=== PATIENT | male | born 1950 | race Caucasian/White ===

== ENCOUNTER → 2016-09-19 | Outpatient (CLI) | payer MEDICARE, OTHER | LOC: LAB 08:18 | DX: N40.0 Benign prostatic hyperplasia without lower urinary tract symptoms (principal); I10 Essential (primary) hypertension; E78.2 Mixed hyperlipidemia ==

== ENCOUNTER → 2017-01-31 | Outpatient (CLI) | payer MEDICARE, OTHER | LOC: LAB 08:29 | DX: I10 Essential (primary) hypertension (principal); N30.00 Acute cystitis without hematuria; B96.20 Unspecified Escherichia coli [E. coli] as the cause of diseases classified elsewhere ==

== ENCOUNTER → 2017-02-01 | Outpatient (CLI) | payer MEDICARE, OTHER | LOC: RAD 07:46 | DX: R74.8 Abnormal levels of other serum enzymes (principal); R79.89 Other specified abnormal findings of blood chemistry; K76.89 Other specified diseases of liver; N28.1 Cyst of kidney, acquired ==

== ENCOUNTER → 2017-02-11 | Outpatient (CLI) | payer MEDICARE, OTHER | LOC: LAB 10:25 | DX: Z91.09 Other allergy status, other than to drugs and biological substances (principal); N39.0 Urinary tract infection, site not specified ==

== ENCOUNTER 2017-04-27 18:24 | Emergency (ER) | payer MEDICARE, OTHER ==
[~2017-04-27] VITALS: Ht 180.3 cm; Wt 97.7 kg
[2017-04-27] MEDS ORDERED: HYDROCHLOROTHIA1 T14 PO (18:50)
[2017-04-27] MEDS ORDERED: ATORVASTATIN CA20 MG PO (18:50)
[2017-04-27] MEDS ORDERED: ASPIRIN ADULT L81 M3 PO (18:51)
[2017-04-27] MEDS ORDERED: AMOXICILLIN AND1 TA2 PO (18:52)
[2017-04-27 20:00] VITALS: BP 141/86
== END 2017-04-27 20:08 | disposition home or self-care (01) ==
LOC: ED 18:24
DX: S61.051D Open bite of right thumb without damage to nail, subsequent encounter (principal); S61.451D Open bite of right hand, subsequent encounter; W54.0XXD Bitten by dog, subsequent encounter

== ENCOUNTER 2017-04-29 13:15 | Outpatient (RCR) | payer MEDICARE, OTHER ==
[~2017-04-29] VITALS: Ht 180.3 cm; Wt 97.7 kg
[~2017-04-29 13:15] MED LIST: AMOXICILLIN AND1 TA2 PO; ASPIRIN ADULT L81 M3 PO; ATORVASTATIN CA20 MG PO; HYDROCHLOROTHIA1 T14 PO
[2017-04-29 13:27] VITALS: BP 127/58
--- NOTE | 2017-05-02 10:17 | NUR ---
Pt arrives ambulatory. Old dressing removed. No drainage noted. Dried blood and glue noted to finger around nailbed. Punctue wound to pad side of thumb. Area cleansed with hibiclens and redressed with telfa and tube gauze. Pt tolerates well. Denies any pain and ROM remains WNL
== END 2017-05-03 14:00 | disposition home or self-care (01) ==
LOC: AMSURD 13:15 → EDSTATUS 13:33 → AMSURD 05-03 14:00
DX: Z48.00 Encounter for change or removal of nonsurgical wound dressing (principal); W54.0XXD Bitten by dog, subsequent encounter

== ENCOUNTER → 2019-02-09 | Outpatient (CLI) | payer MEDICARE, OTHER ==
[2019-02-09 07:54] LABS: ALBUMIN 3.9 g/dL (3.4-4.8)
[2019-02-09 07:57] LABS: TOTAL PROTEIN 6.3 g/dL (6.2-8.1)
[2019-02-09 07:59] LABS: TOTAL BILIRUBIN 0.7 mg/dL (0.2-1.2)
[2019-02-09 08:02] LABS: DIRECT BILIRUBIN 0.3 mg/dL (0.0-0.5)
== END ==
LOC: LAB 07:24
PROVIDERS: Physician Assistant
DX: Z51.81 Encounter for therapeutic drug level monitoring (principal); Z79.899 Other long term (current) drug therapy

== ENCOUNTER → 2019-04-14 | Outpatient (CLI) | payer MEDICARE, OTHER ==
[2019-04-14 11:54] LABS: EOS % 0.3 % (0.0-4.0); HEMATOCRIT 45.1 % (42.0-52.0); HEMOGLOBIN 15.4 g/dL (13.5-18.0); LYMPH# 1.5 (1.50-4.00); MEAN CELL VOLUME 91 fl (78-100); MEAN CORPUSCULAR HEMOGLOBIN 31 pg (27-31); MEAN CORPUSCULAR HGB CONC 34 g/dL (33-37); MEAN PLATELET VOLUME 9.4 fl (7.4-10.4); MONO # 0.7 (0.20-0.80); NEU # 8.8 (1.40-6.50); PLATELET COUNT 243 K/mm3 (130-400); RED BLOOD COUNT 4.97 M/mm3 (4.20-5.60); RED CELL DISTRIBUTION WIDTH 12.8 % (11.5-14.5)
[2019-04-14 11:58] LABS: ALBUMIN 4.5 g/dL (3.4-4.8)
[2019-04-14 11:59] LABS: POTASSIUM 3.9 mmol/L (3.5-5.1)
[2019-04-14 12:00] LABS: CALCIUM 9.9 mg/dL (8.3-10.5)
[2019-04-14 12:01] LABS: TOTAL PROTEIN 7.2 g/dL (6.2-8.1)
[2019-04-14 12:03] LABS: TOTAL BILIRUBIN 1.9 mg/dL (0.2-1.2)
== END ==
LOC: RAD 11:37
PROVIDERS: Physician Assistant
DX: M41.85 Other forms of scoliosis, thoracolumbar region (principal); M47.815 Spondylosis without myelopathy or radiculopathy, thoracolumbar region; J30.89 Other allergic rhinitis; J01.90 Acute sinusitis, unspecified; G25.81 Restless legs syndrome

== ENCOUNTER → 2019-04-28 | Outpatient (CLI) | payer MEDICARE, OTHER | LOC: RAD 08:33 | DX: K45.8 Other specified abdominal hernia without obstruction or gangrene (principal); K57.30 Diverticulosis of large intestine without perforation or abscess without bleeding; R07.81 Pleurodynia | CPT/HCPCS: Q9967 ==

== ENCOUNTER 2019-06-03 02:28 | Emergency (ER) | payer MEDICARE, OTHER ==
[2019-06-03] MEDS ORDERED: ROPINIROLE HYD0.5 MG PO (02:41)
[2019-06-03] MEDS ORDERED: MELATONIN10 M2 PO (02:41)
[2019-06-03] MEDS ORDERED: ZYRTEC ALLERGY10 MG PO (02:41)
[2019-06-03] MEDS ORDERED: VALACYCLOVIR1 GM PO (03:24)
[2019-06-03] MEDS ORDERED: ONDANSETRON ODT8 MG PO (03:50)
[2019-06-03 04:12] VITALS: BP 147/87
== END 2019-06-03 04:10 | disposition home or self-care (01) ==
LOC: ED 02:28
DX: G25.81 Restless legs syndrome (principal); R11.0 Nausea; R51 Headache; T50.995A Adverse effect of other drugs, medicaments and biological substances, initial encounter; I10 Essential (primary) hypertension; I25.10 Atherosclerotic heart disease of native coronary artery without angina pectoris; F41.9 Anxiety disorder, unspecified; Z79.82 Long term (current) use of aspirin; Z87.891 Personal history of nicotine dependence; Z95.5 Presence of coronary angioplasty implant and graft; Z98.890 Other specified postprocedural states
CPT/HCPCS: J1885

== ENCOUNTER 2019-08-11 13:41 | Outpatient (RCR) | payer MEDICARE, OTHER ==
[~2019-08-11 13:41] MED LIST changes: +MELATONIN10 M2 PO; +ONDANSETRON ODT8 MG PO; +ROPINIROLE HYD0.5 MG PO; +VALACYCLOVIR1 GM PO; +ZYRTEC ALLERGY10 MG PO
== END 2019-08-11 14:00 | disposition still patient (30) ==
LOC: SPEECH 13:41
DX: R41.3 Other amnesia (principal)

== ENCOUNTER → 2020-03-30 | Outpatient (CLI) | payer MEDICARE, OTHER ==
[2020-03-30 15:47] LABS: ALBUMIN 4.4 g/dL (3.4-4.8)
[2020-03-30 15:52] LABS: TOTAL BILIRUBIN 1.5 mg/dL (0.2-1.2)
[2020-03-30 15:56] LABS: DIRECT BILIRUBIN 0.6 mg/dL (0.0-0.5)
== END ==
LOC: RAD 15:24 → LAB 15:24
PROVIDERS: Physician Assistant
DX: G31.9 Degenerative disease of nervous system, unspecified (principal)

== ENCOUNTER → 2020-07-05 | Outpatient (CLI) | payer MEDICARE, OTHER ==
[2020-07-05 09:55] LABS: ALBUMIN 4.3 g/dL (3.4-4.8)
[2020-07-05 09:56] LABS: POTASSIUM 4.1 mmol/L (3.5-5.1)
[2020-07-05 09:57] LABS: CALCIUM 9.5 mg/dL (8.3-10.5)
[2020-07-05 09:58] LABS: TOTAL PROTEIN 7.1 g/dL (6.2-8.1)
[2020-07-05 10:06] LABS: EOS # 0.1 (0.04-0.40); EOS % 1.5 % (0.0-4.0); HEMATOCRIT 42.9 % (42.0-52.0); HEMOGLOBIN 14.7 g/dL (13.5-18.0); LYMPH# 1.4 (1.50-4.00); MEAN CELL VOLUME 89 fl (78-100); MEAN CORPUSCULAR HEMOGLOBIN 31 pg (27-31); MEAN CORPUSCULAR HGB CONC 34 g/dL (33-37); MEAN PLATELET VOLUME 9.7 fl (7.4-10.4); MONO # 0.5 (0.20-0.80); NEU # 4.5 (1.40-6.50); PLATELET COUNT 227 K/mm3 (130-400); RED CELL DISTRIBUTION WIDTH 13.8 % (11.5-14.5); WHITE BLOOD COUNT 6.5 K/mm3 (4.8-10.8)
[2020-07-05 11:08] LABS: ERYTHROCYTE SEDIMENTATION RATE 7 mm/hr (0-20)
[2020-07-05 21:34] LABS: FOLATE (FOLIC ACID) 10.8 ng/mL (7.0-31.4)
[2020-07-05 22:18] LABS: SYPHILIS AB SCREEN w REFLEX Negative (Negative)
[2020-07-07 17:18] LABS: A/G RATIO (PEP) 1.22 (()); BETA GLOBULINS (PEP) 0.9 g/dL (0.7-1.2)
[2020-07-08 09:06] LABS: .COPPER,S 0.94 mcg/mL (())
[2020-07-09 13:04] LABS: VITAMIN B1 145 nmol/L (70-180)
[2020-07-11 15:07] LABS: VITAMIN E 10.3 mg/L (())
== END ==
LOC: LAB 08:23
PROVIDERS: Psychiatry & Neurology Neurology
DX: R41.89 Other symptoms and signs involving cognitive functions and awareness (principal); R25.1 Tremor, unspecified; R56.9 Unspecified convulsions

== ENCOUNTER → 2020-09-30 | Outpatient (CLI) | payer MEDICARE, OTHER ==
[2020-10-06 10:37] LABS: METHYLMALONIC ACID, SERUM 0.14 nmol/mL (<=0.40)
== END ==
LOC: LAB 08:26
PROVIDERS: Psychiatry & Neurology Neurology
DX: G25.0 Essential tremor (principal)

== ENCOUNTER → 2020-12-23 | Outpatient (CLI) | payer MEDICARE, OTHER ==
[2020-12-24 02:59] LABS: FOLATE (FOLIC ACID) 5.4 ng/mL (2.0-20.0)
[2020-12-29 11:46] LABS: VITAMIN E 9.7 mg/L (())
== END ==
LOC: LAB 14:09
PROVIDERS: Psychiatry & Neurology Neurology
DX: Z12.5 Encounter for screening for malignant neoplasm of prostate (principal); E78.2 Mixed hyperlipidemia; R20.2 Paresthesia of skin; E53.8 Deficiency of other specified B group vitamins

== ENCOUNTER → 2021-11-13 | Outpatient (CLI) | payer MEDICARE, OTHER ==
[2021-11-13 07:49] LABS: BASO # 0.04 K/mm3 (0.02-0.10); EOS # 0.09 K/mm3 (0.04-0.40); EOS % 1.5 % (0.0-4.0); HEMATOCRIT 41.3 % (42.0-52.0); HEMOGLOBIN 13.9 g/dL (13.5-18.0); LYMPH# 1.36 K/mm3 (1.50-4.00); MEAN CELL VOLUME 96 fl (78-100); MEAN CORPUSCULAR HEMOGLOBIN 32 pg (27-31); MEAN CORPUSCULAR HGB CONC 34 g/dL (33-37); MEAN PLATELET VOLUME 9.4 fl (7.4-10.4); NEU # 3.94 K/mm3 (1.40-6.50); PLATELET COUNT 202 K/mm3 (130-400); RED BLOOD COUNT 4.31 M/mm3 (4.20-5.60); RED CELL DISTRIBUTION WIDTH 12.6 % (11.5-14.5); WHITE BLOOD COUNT 5.9 K/mm3 (4.8-10.8)
[2021-11-13 07:55] LABS: POTASSIUM 4.5 mmol/L (3.5-5.1)
[2021-11-13 07:56] LABS: ALBUMIN 4.2 g/dL (3.4-4.8)
[2021-11-13 07:57] LABS: CALCIUM 9.8 mg/dL (8.3-10.5)
[2021-11-13 07:58] LABS: TOTAL PROTEIN 6.7 g/dL (6.2-8.1)
== END ==
LOC: LAB 07:04
PROVIDERS: Physician Assistant
DX: Z00.00 Encounter for general adult medical examination without abnormal findings (principal); Z13.220 Encounter for screening for lipoid disorders; Z13.29 Encounter for screening for other suspected endocrine disorder; G25.0 Essential tremor; I10 Essential (primary) hypertension; G20 Parkinson's disease; G25.81 Restless legs syndrome; G40.909 Epilepsy, unspecified, not intractable, without status epilepticus

== ENCOUNTER → 2022-01-24 | Outpatient (CLI) | payer MEDICARE, OTHER | LOC: LAB 12:23 | DX: Z20.822 Contact with and (suspected) exposure to COVID-19 (principal) ==

== ENCOUNTER → 2024-01-25 | Outpatient (CLI) | payer MEDICARE, OTHER ==
[~2024-01-25] MED LIST changes: +ASPIRIN 32325 MG/TAB PO; +ASPIRIN 81M81 MG/TA2 PO; +ATIVAN0.5 MG PO; +DOCUSATE SODIU1 EACH PO; +DULCOLAX5 M1 PO; +GOOD NEIGHBOR325 MG PO; +LISINOPRIL20 MG PO; +PROPRANOLOL ER80 MG PO; +REMEDY ANTIFUNG85 GM TP; +ROPINIROLE HCL1 MG PO; +ROPINIROLE HYD0.5 MG; +ROXICODONE 55 MG/TAB PO; +TYLENOL EXTRA500 M2 PO; +VITAMIN C500 MG
[2024-01-25 18:35] LABS: URINE APPEARANCE TURBID (CLEAR); URINE BILIRUBIN NEGATIVE (NEGATIVE); URINE GLUCOSE NEGATIVE (NEGATIVE); URINE KETONE NEGATIVE (NEGATIVE); URINE PROTEIN(semi-quant) 3+ (NEGATIVE)
[2024-01-25 18:36] LABS: URINE BLOOD 3+ (NEGATIVE); URINE LEUKOCYTE ESTERASE TRACE (NEGATIVE); URINE NITRATE NEGATIVE (NEGATIVE)
[2024-01-25 18:37] LABS: URINE COLOR BROWN (YELLOW)
== END ==
LOC: LAB 17:50
PROVIDERS: Nurse Practitioner Family
DX: R31.9 Hematuria, unspecified (principal)

== ENCOUNTER → 2024-02-27 | Outpatient (CLI) | payer MEDICARE, OTHER | LOC: RAD 13:41 | DX: M47.816 Spondylosis without myelopathy or radiculopathy, lumbar region (principal); I70.0 Atherosclerosis of aorta; M16.12 Unilateral primary osteoarthritis, left hip; I99.9 Unspecified disorder of circulatory system ==

== ENCOUNTER 2024-03-05 16:11 | Observation (INO) | payer MEDICARE, OTHER ==
[~2024-03-05] VITALS: Ht 170.2 cm; Wt 86.3 kg
[2024-03-05] MEDS ORDERED: CARBIDOPA AND L1 OD1 PO (16:46)
[2024-03-05] MEDS ORDERED: VAZALORE81 MG PO (16:47)
[2024-03-05] MEDS ORDERED: CYCLOBENZ5 MG PO (16:49)
[2024-03-05] MEDS ORDERED: CYANOCOBAL1000 MCG/2 PO (16:51)
[2024-03-05] MEDS ORDERED: DOCUSATE NA250 MG PO (16:52)
[2024-03-05] MEDS ORDERED: NS 1,000 ML IV SCH (17:00)
[2024-03-05 17:05] LABS: BASO # 0.03 K/mm3 (0.02-0.10); EOS % 1.2 % (0.0-4.0); HEMATOCRIT 42.8 % (42.0-52.0); HEMOGLOBIN 14.7 g/dL (13.5-18.0); LYMPH# 1.26 K/mm3 (1.50-4.00); MEAN CELL VOLUME 92 fl (78-100); MEAN CORPUSCULAR HEMOGLOBIN 32 pg (27-31); MEAN CORPUSCULAR HGB CONC 34 g/dL (33-37); MEAN PLATELET VOLUME 9.1 fl (7.4-10.4); MONO # 0.58 K/mm3 (0.20-0.80); NEU # 6.37 K/mm3 (1.40-6.50); PLATELET COUNT 195 K/mm3 (130-400); RED BLOOD COUNT 4.66 M/mm3 (4.20-5.60); RED CELL DISTRIBUTION WIDTH 12.9 % (11.5-14.5); WHITE BLOOD COUNT 8.4 K/mm3 (4.8-10.8)
[2024-03-05 17:23] LABS: ALBUMIN 4.3 g/dL (3.4-4.8); SODIUM 141 mmol/L (136-145)
[2024-03-05 17:24] LABS: CALCIUM 9.9 mg/dL (8.3-10.5)
[2024-03-05 17:25] LABS: GLUCOSE 97 mg/dL (75-110)
[2024-03-05 17:26] LABS: TOTAL PROTEIN 6.7 g/dL (6.2-8.1)
[2024-03-05 17:27] LABS: CARBON DIOXIDE 20 mmol/L (23-31); TOTAL BILIRUBIN 1.7 mg/dL (0.2-1.2)
[2024-03-05 17:31] LABS: AST-SGOT 13 U/L (5-34)
[2024-03-05 17:33] LABS: ALT/SGPT < 6 U/L (0-55)
[2024-03-05 18:10] LABS: URINE APPEARANCE CLOUDY (CLEAR); URINE COLOR PINK (YELLOW)
[2024-03-05 18:12] LABS: URINE BILIRUBIN NEGATIVE (NEGATIVE); URINE BLOOD 3+ (NEGATIVE); URINE GLUCOSE NEGATIVE (NEGATIVE); URINE KETONE NEGATIVE (NEGATIVE); URINE LEUKOCYTE ESTERASE NEGATIVE (NEGATIVE); URINE NITRATE NEGATIVE (NEGATIVE); URINE PROTEIN(semi-quant) 1+ (NEGATIVE); URINE WBC 0-1 /hpf (0-3)
[2024-03-05] MEDS ORDERED: cefTRIAXone 1 G in Water For Injection,Sterile 10 ML IV ONE (18:45)
[2024-03-05 20:46] VITALS: BP 167/91
[2024-03-05] MEDS ORDERED: rOPINIRole 1 MG TABLET PO SCH (21:37)
[2024-03-05] MEDS ORDERED: Acetaminophen 500 MG TAB PO SCH (21:45)
[2024-03-06 05:58] VITALS: BP 182/87
[2024-03-06 07:56] LABS: BASO # 0.03 K/mm3 (0.02-0.10); EOS # 0.08 K/mm3 (0.04-0.40); EOS % 0.9 % (0.0-4.0); HEMATOCRIT 41.7 % (42.0-52.0); HEMOGLOBIN 14.2 g/dL (13.5-18.0); LYMPH# 1.25 K/mm3 (1.50-4.00); MEAN CELL VOLUME 92 fl (78-100); MEAN CORPUSCULAR HEMOGLOBIN 31 pg (27-31); MEAN CORPUSCULAR HGB CONC 34 g/dL (33-37); MEAN PLATELET VOLUME 9.1 fl (7.4-10.4); MONO # 0.59 K/mm3 (0.20-0.80); NEU # 7.28 K/mm3 (1.40-6.50); PLATELET COUNT 187 K/mm3 (130-400); RED BLOOD COUNT 4.54 M/mm3 (4.20-5.60); RED CELL DISTRIBUTION WIDTH 12.7 % (11.5-14.5); WHITE BLOOD COUNT 9.2 K/mm3 (4.8-10.8)
[2024-03-06] MEDS ORDERED: cefTRIAXone 1 G in Water For Injection,Sterile 10 ML IV SCH (08:00)
[2024-03-06 08:03] LABS: CALCIUM 9.6 mg/dL (8.3-10.5)
[2024-03-06 08:04] LABS: TOTAL PROTEIN 6.3 g/dL (6.2-8.1)
[2024-03-06 08:06] LABS: TOTAL BILIRUBIN 1.8 mg/dL (0.2-1.2)
[2024-03-06] MEDS ORDERED: Docusate Sodium 100 MG CAP PO SCH (09:00)
[2024-03-06] MEDS ORDERED: Lisinopril 20 MG TAB PO SCH (09:00)
[2024-03-06] MEDS ORDERED: Iohexol 300 - 100 ML VIAL IV ONE (13:14)
[2024-03-06 17:23] VITALS: BP 147/76
[2024-03-06] MEDS ORDERED: Melatonin 3 MG TAB PO SCH (20:00)
[2024-03-06 22:39] VITALS: BP 127/72
[2024-03-07 02:16] VITALS: BP 172/86
[2024-03-07 05:52] VITALS: BP 150/71
[2024-03-07 06:22] LABS: BASO # 0.03 K/mm3 (0.02-0.10); EOS # 0.08 K/mm3 (0.04-0.40); HEMATOCRIT 41.5 % (42.0-52.0); HEMOGLOBIN 13.8 g/dL (13.5-18.0); LYMPH# 1.54 K/mm3 (1.50-4.00); MEAN CELL VOLUME 94 fl (78-100); MEAN CORPUSCULAR HEMOGLOBIN 31 pg (27-31); MEAN CORPUSCULAR HGB CONC 33 g/dL (33-37); MEAN PLATELET VOLUME 9.2 fl (7.4-10.4); MONO # 0.58 K/mm3 (0.20-0.80); NEU # 6.16 K/mm3 (1.40-6.50); PLATELET COUNT 181 K/mm3 (130-400); RED CELL DISTRIBUTION WIDTH 12.8 % (11.5-14.5); WHITE BLOOD COUNT 8.4 K/mm3 (4.8-10.8)
[2024-03-07 06:25] LABS: ALBUMIN 3.9 g/dL (3.4-4.8); SODIUM 140 mmol/L (136-145)
[2024-03-07 06:26] LABS: CALCIUM 9.6 mg/dL (8.3-10.5)
[2024-03-07 06:27] LABS: GLUCOSE 102 mg/dL (75-110); TOTAL PROTEIN 6.1 g/dL (6.2-8.1)
[2024-03-07 06:29] LABS: CARBON DIOXIDE 20 mmol/L (23-31); TOTAL BILIRUBIN 1.4 mg/dL (0.2-1.2)
[2024-03-07 06:32] LABS: ACETAMINOPHEN < 1 ug/mL; ALCOHOL IN-HOUSE < 10 mg/dL (<10)
[2024-03-07 06:33] LABS: AST-SGOT 18 U/L (5-34)
[2024-03-07 06:38] LABS: ALT/SGPT < 6 U/L (0-55)
[2024-03-07 09:20] VITALS: BP 131/78
[2024-03-07] MEDS ORDERED: CEPHALEXIN500 M1 PO (11:32)
== END 2024-03-07 11:50 | disposition home or self-care (01) ==
LOC: ED 16:11 → MED/SURG 18:55
PROVIDERS: Family Medicine; ADMIT Nurse Practitioner
DX: R41.0 Disorientation, unspecified (principal); T42.8X5A Adverse effect of antiparkinsonism drugs and other central muscle-tone depressants, initial encounter; R44.3 Hallucinations, unspecified; R31.9 Hematuria, unspecified; I12.9 Hypertensive chronic kidney disease with stage 1 through stage 4 chronic kidney disease, or unspecified chronic kidney disease; N18.9 Chronic kidney disease, unspecified; E80.6 Other disorders of bilirubin metabolism; M16.11 Unilateral primary osteoarthritis, right hip; G20.A1 Parkinson's disease without dyskinesia, without mention of fluctuations; M51.36 Other intervertebral disc degeneration, lumbar region; I73.9 Peripheral vascular disease, unspecified; I70.0 Atherosclerosis of aorta; E66.9 Obesity, unspecified; Y92.9 Unspecified place or not applicable
CPT/HCPCS: G0378; J0696; J7030; J7120; Q9967

== ENCOUNTER 2024-03-24 08:30 | Outpatient (RCR) | payer MEDICARE, OTHER ==
[~2024-03-24 08:30] MED LIST changes: +CARBIDOPA AND L1 OD1 PO; +CEPHALEXIN500 M1 PO; +CYANOCOBAL1000 MCG/2 PO; +CYCLOBENZ5 MG PO; +DOCUSATE NA250 MG PO; +VAZALORE81 MG PO
== END 2024-04-20 | disposition home or self-care (01) ==
LOC: PT
DX: M54.50 Low back pain, unspecified (principal)

== ENCOUNTER → 2024-04-01 | Outpatient (CLI) | payer MEDICARE, OTHER ==
[2024-04-01 11:12] LABS: BASO # 0.03 K/mm3 (0.02-0.10); EOS % 1.4 % (0.0-4.0); HEMATOCRIT 40.6 % (42.0-52.0); HEMOGLOBIN 13.6 g/dL (13.5-18.0); MEAN CELL VOLUME 95 fl (78-100); MEAN CORPUSCULAR HEMOGLOBIN 32 pg (27-31); MEAN CORPUSCULAR HGB CONC 34 g/dL (33-37); MEAN PLATELET VOLUME 9.2 fl (7.4-10.4); MONO # 0.52 K/mm3 (0.20-0.80); NEU # 4.75 K/mm3 (1.40-6.50); PLATELET COUNT 177 K/mm3 (130-400); RED BLOOD COUNT 4.27 M/mm3 (4.20-5.60); WHITE BLOOD COUNT 6.9 K/mm3 (4.8-10.8)
[2024-04-01 11:17] LABS: ALBUMIN 4.1 g/dL (3.4-4.8); SODIUM 141 mmol/L (136-145)
[2024-04-01 11:18] LABS: CALCIUM 9.4 mg/dL (8.3-10.5)
[2024-04-01 11:19] LABS: GLUCOSE 87 mg/dL (75-110); TOTAL PROTEIN 6.3 g/dL (6.2-8.1)
[2024-04-01 11:20] LABS: CARBON DIOXIDE 24 mmol/L (23-31)
[2024-04-01 11:21] LABS: TOTAL BILIRUBIN 1.3 mg/dL (0.2-1.2)
[2024-04-01 11:25] LABS: AST-SGOT 15 U/L (5-34)
[2024-04-01 11:36] LABS: ALT/SGPT < 6 U/L (0-55); PARTIAL THROMBOPLASTIN TIME 21.6 SECONDS (21.0-32.0)
== END ==
LOC: LAB 11:00
PROVIDERS: Physician Assistant
DX: Z01.818 Encounter for other preprocedural examination (principal)